=== PATIENT | male | born 1940 ===

== ENCOUNTER 2023-05-25 05:55 | Day surgery (SDC) | payer MEDICARE ==
[2023-05-25] MEDS ORDERED: Lactated Ringers 1,000 ML IV SCH (06:00)
[2023-05-25] MEDS ORDERED: Sodium Chloride 0.9% 10 ML Syringe FLUSH PRN (06:00)
[2023-05-25] MEDS: Lactated Ringers 1,000 ML IV SCH (06:15)
[2023-05-25] MEDS ORDERED: Ropivacaine 0.5% 5 MG/ML 30 ML SDV ONE (06:30)
[2023-05-25] MEDS ORDERED: dexmedeTOMIDine HCl 200 MCG/2 ML SDV ONE (06:30)
[2023-05-25] MEDS ORDERED: EPINEPHrine 1 MG/ML SDV ONE (06:30)
[2023-05-25] MEDS ORDERED: Midazolam 1 MG/ML 2 ML SDV ONE (06:32)
[2023-05-25] MEDS ORDERED: Propofol 200 MG/20 ML SDV ONE (06:32)
[2023-05-25] MEDS ORDERED: Lidocaine 1% 6 ML ONE (06:32)
[2023-05-25] MEDS ORDERED: fentaNYL 100 MCG/2 ML SDV ONE ×2 (06:32→08:59)
[2023-05-25] MEDS ORDERED: Dexamethasone 4 MG/ML 5 ML MDV ONE (06:42)
[2023-05-25 06:48] LABS: INR 1.12; PROTHROMBIN TIME 11.9 SECONDS (9.7-12.0)
[2023-05-25 06:49] LABS: PTT,PARTIAL THROMBOPLSTIN TIME 30.5 SECONDS (21.7-31.4)
[2023-05-25] MEDS ORDERED: ceFAZolin 2 GM Vial ONE (08:10)
[2023-05-25] MEDS ORDERED: Ondansetron 4 MG/2 ML SDV ONE (08:31)
[2023-05-25] MEDS ORDERED: Sodium Chloride 0.9% 10 ML Syringe FLUSH SCH (09:00)
[2023-05-25] MEDS: Tranexamic Acid 1,000 MG/10 ML Vial ONE (09:04)
[2023-05-25] MEDS: Vancomycin 1 GM SDV ONE (09:04)
[2023-05-25] MEDS ORDERED: Lactated Ringers 500 ML ONE (09:04)
== END 2023-05-25 12:50 | disposition home or self-care (01) ==
LOC: JD.SDS 05:55
PROVIDERS: ATTEND Orthopaedic Surgery
DX: M19.011 Primary osteoarthritis, right shoulder (principal); I25.10 Atherosclerotic heart disease of native coronary artery without angina pectoris; Z87.891 Personal history of nicotine dependence; Z79.899 Other long term (current) drug therapy; Z88.8 Allergy status to other drugs, medicaments and biological substances
CPT/HCPCS: 23472; 36415; 76000; 85610; 85730; 97161; C1713; C1769; C1776; J0171; J0690; J1100; J2250; J2405; J2704; J2795; J3010; J3370; J7030; J7120; 01638; 64415; 99100; J3490

== ENCOUNTER 2024-02-17 17:04 | Emergency (ER) | payer MEDICARE, OTHER ==
[2024-02-17 17:40] LABS: BASOPHILS PERCENT AUTO 0.5 % (0.0-1.0); EOSINOPHILS ABSOLUTE AUTO 0.6 K/mm3 (0.0-0.4); EOSINOPHILS PERCENT AUTO 8.4 % (0.0-6.0); HEMATOCRIT 40.5 % (42.0-52.0); HEMOGLOBIN 13.9 gm/dl (14.0-18.0); IMMATURE GRAN ABSOLUTE AUTO 0.02 K/mm3 (0.00-0.05); IMMATURE GRAN PERCENT AUTO 0.3 % (0.0-0.4); LYMPHOCYTES ABSOLUTE AUTO 0.9 K/mm3 (1.0-4.8); LYMPHOCYTES PERCENT AUTO 11.7 % (24.0-44.0); MEAN CORPUSCULAR HEMOGLOBIN 31.3 pg (28.0-32.0); MEAN CORPUSCULAR HGB CONC 34.3 g/dl (32.0-36.0); MEAN CORPUSCULAR VOLUME 91.2 fl (83.0-99.0); MEAN PLATELET VOLUME 8.4 fl (9.4-12.4); MONOCYTES ABSOLUTE AUTO 0.8 K/mm3 (0.0-0.8); NEUTROPHILS ABSOLUTE AUTO 5.2 K/mm3 (1.8-7.7); NEUTROPHILS PERCENT AUTO 69.1 % (41.0-71.0); PLATELET COUNT,PLT 135 K/mm3 (150-400); RED BLOOD CELL COUNT 4.44 M/mm3 (4.52-5.90); WHITE BLOOD CELL COUNT,WBC 7.53 K/mm3 (3.9-11.3)
[2024-02-17 18:09] LABS: LACTIC ACID 2.1 mmol/L (0.4-2.0)
[2024-02-17 18:10] LABS: ALBUMIN 3.7 g/dl (3.4-5.0); BILIRUBIN TOTAL 0.9 mg/dL (0.2-1.0); CREATININE 0.8 mg/dL (0.7-1.3); EST CRCL DRUG DOSING (CG) 67.69 mL/min; PROTEIN TOTAL,TP 7.5 g/dl (6.4-8.2)
[2024-02-17 18:31] LABS: CORONAVIRUS COVID-19 NAA NEGATIVE (NEGATIVE); INFLUENZA A NAA NEGATIVE (NEGATIVE); RESPIRATORY SYNCYTIAL VIR NAA NEGATIVE (NEGATIVE)
[2024-02-17] MEDS: Furosemide 40 MG/4 ML VIAL IVPUSH ONE (18:34)
[2024-02-17] MEDS: Sodium Chloride 0.9% 10 ML Syringe FLUSH PRN (18:34)
[2024-02-17 18:38] LABS: INR 2.44; PROTHROMBIN TIME 24.4 SECONDS (9.7-12.0)
== END 2024-02-17 20:45 ==
LOC: JD.ED 17:04
DX: I11.0 Hypertensive heart disease with heart failure (principal); I50.9 Heart failure, unspecified; I25.10 Atherosclerotic heart disease of native coronary artery without angina pectoris; I48.91 Unspecified atrial fibrillation; J44.9 Chronic obstructive pulmonary disease, unspecified; E78.00 Pure hypercholesterolemia, unspecified; Z95.5 Presence of coronary angioplasty implant and graft; Z87.891 Personal history of nicotine dependence; Z88.8 Allergy status to other drugs, medicaments and biological substances; Z79.82 Long term (current) use of aspirin; Z79.899 Other long term (current) drug therapy; Z79.01 Long term (current) use of anticoagulants
CPT/HCPCS: 0241U; 36415; 71045; 80053; 83605; 83880; 84484; 85025; 85610; 87040; 93005; 96374; 99285; J1940; J3490; 93010